=== PATIENT | male | born 1960 | race Caucasian/White ===

== ENCOUNTER → 2016-09-11 | Outpatient (CLI) | payer MEDICARE, OTHER ==
--- NOTE | ~2016-09-11 | CT71 ---
[facility] A Service of [facility] RADIOLOGY TEXT RESULTS PATIENT: JERI DAILEY LOC[facility]: [facility] : 64 UNIT #: [id number] AGE: [address]: Mulugeta Paez Jr, MD SEX: M ORDER DR: [id number] [facility] [place]. [place], [place] [address] [id number] O MR#: [id number] [facility] #: [id number] NAME: JERI DAILEY : 1960 SEX: M STUDY DATE/TIME: 09/11/2016 13:34 UNIT: [facility] ROOM: STUDY DESCRIPTION: CT Head Wo Contrast Attending Physician: Mulugeta Paez Jr., M.D. Referring Physician: Mulugeta Paez Jr., M.D. Ordering Physician: Mulugeta Paez Jr., M.D. Primary Care Physician: Mulugeta Paez Jr., M.D. MEDICAL IMAGING REPORT This report is preliminary unless electronic signature is present EXAM Head CT without contrast HISTORY Seizure 2 weeks ago. TECHNIQUE Axial images were obtained without contrast. This CT exam was performed with one or more of the following radiation dose reduction techniques: automatic exposure control, adjustment of mA and/or kV according to patient size, and iterative reconstruction. FINDINGS Postoperative changes are seen on the right with right temporal lobe encephalomalacia. Generalized atrophy is noted. There is no evidence of mass lesion, hemorrhage or edema. No midline shift is seen. No extraaxial fluid collections are noted. Mucosal thickening is seen in the lateral aspect of the right sphenoid sinus. IMPRESSION Postoperative changes on the right with right temporal encephalomalacia and generalized atrophy. No acute findings. Dictated by... Chris Patton M.D. THIS IS AN ELECTRONICALLY VERIFIED REPORT Chris Patton M.D. at 09/11/2016 4:57 PM Sonya TD: 09/11/2016 15:35 JOB #: [id number] [facility] A Service of [facility] RADIOLOGY TEXT RESULTS PATIENT: JERI DAILEY LOC[facility]: [facility] : 64 UNIT #: [id number] AGE: [address]: Mulugeta Paez Jr, MD SEX: M ORDER DR: MEDICAL IMAGING REPORT Page 1 of 1 COPY
== END | disposition home or self-care (01) ==
LOC: CCAT 12:48
DX: R56.9 Unspecified convulsions (principal); G93.89 Other specified disorders of brain; G31.9 Degenerative disease of nervous system, unspecified; Z98.890 Other specified postprocedural states
CPT/HCPCS: 70450